=== PATIENT | female | born 1980 | race Caucasian/White ===

== ENCOUNTER 2024-08-13 17:38 | Emergency (ER) | payer OTHER, SELFPAY ==
[2024-08-13] VITALS (19 sets, daily range): BP systolic 130–132; BP diastolic 65–84; PULSE 67–95; TEMP 36.9; O2SAT 92–99; BMI 61.7
--- NOTE | 2024-08-13 17:51 | ECG_ITS ---
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 Measurements Intervals [place] Rate: 77 P: 57 KS: 156 QRS: 17 QRSD: 92 T: 4 QT: 396 QTc: 428 Interpretive Statements 1100 Sinus rhythm 9110 normal ECG No previous ECG available for comparison Electronically Signed On 08-13-2024 17:55:03 EDT by ESTEBAN CONWAY M.D.
--- NOTE | 2024-08-13 17:52 | ED.GENADUL1 ---
HPI HPI - General Adult General Chief complaint: Overdose Stated complaint: Overdose Time Seen by Provider: 08/13/24 17:44 Source: family Mode of arrival: Wheelchair History of Present Illness HPI narrative: 43-year-old female presents for an overdose. She took 0.25 mg Xanax tablets. She reports that she took 2 this morning and then 2 this afternoon and then she took approximately 8 at 1 time at 5 PM, just prior to seeing her counselor. Her counselor told her to come to the emergency department. The patient states she took them because she did not want to hurt anymore. When questioned she reports that this is not physical pain that she is referring to but rather emotional pain. She states she has never done anything like this before. She does not have any physical complaints. Related Data Home Medications ?Medication ?Instructions ?Recorded ?Confirmed atorvastatin 20 mg tablet 20 mg PO DAILY 08/13/24 08/13/24 bisoprolol 10 1 tab PO DAILY 08/13/24 08/13/24 mg-hydrochlorothiazide 6.25 mg tablet fluoxetine 20 mg tablet 20 mg PO DAILY 08/13/24 08/13/24 levothyroxine 100 mcg tablet 100 mcg PO DAILY 08/13/24 08/13/24 (Synthroid) metformin 500 mg tablet,extended 1,000 mg PO DAILY 08/13/24 08/13/24 release 24 hr semaglutide 0.25 mg or 0.5 mg (2 0.5 mg subcut .weekly 08/13/24 08/13/24 mg/3 mL) subcutaneous pen injector (Ozempic) Allergies Allergy/AdvReac Type Severity Reaction Status Date / Time ciprofloxacin (From Cipro) Allergy Severe Rash Verified 08/13/24 17:51 Penicillins Allergy Severe Rash Verified 08/13/24 17:51 Opioid HPI Opioid Management Most Recent Opioid Data: No Data to Display Review of Systems ROS Narrative A ten point review of systems is negative except as noted above. Exam Narrative Exam Narrative: Nurses note and vital signs reviewed and patient is not hypoxic. General: The patient appears in no apparent distress. Patient is resting comfortably on cart. Skin: Warm, dry, no pallor noted. There is no rash noted. Head: Normocephalic, atraumatic Eye: Normal conjunctiva, no drainage, EOMI. PERRL Ears, Nose, Mouth, and Throat: oral mucosa is moist. Nares patent. Cardiovascular: Regular Rate and Rhythm Respiratory: Patient is in no distress, no accessory muscle use, lungs are clear to auscultation, no wheezing, rales or rhonchi Back: non-tender, no CVA tenderness bilaterally to percussion. GI: Obese and nontender Musculoskeletal: The patient has no evidence of calf tenderness, no pitting edema, symmetrical pulses noted bilaterally Neurological: A&O x4, normal speech Psychiatric: Cooperative. She gives short answers to questions. Constitutional Vital Signs, click to edit/add: Last Vital Signs Temp 98.4 F 08/13/24 17:43 Pulse 75 08/13/24 17:43 Resp 16 08/13/24 17:43 BP 130/65 08/13/24 17:43 Pulse Ox 95 08/13/24 17:43 O2 Del Method Room Air 08/13/24 17:43 Course Vital Signs Vital signs: Vital Signs Temperature 98.4 F 08/13/24 17:43 Pulse Rate 75 08/13/24 17:43 Respiratory Rate 16 08/13/24 17:43 Blood Pressure 130/65 08/13/24 17:43 Pulse Oximetry 95 08/13/24 17:43 Oxygen Delivery Method Room Air 08/13/24 17:43 Temperature 98.4 F 08/13/24 17:43 Pulse Rate 75 08/13/24 17:43 Respiratory Rate 16 08/13/24 17:43 Blood Pressure 130/65 08/13/24 17:43 Pulse Oximetry 95 08/13/24 17:43 Oxygen Delivery Method Room Air 08/13/24 17:43 Medical Decision Making [facility] Narrative Medical decision making narrative: Tests are ordered and the patient is signed out to Dr. Candelario at change of shift. Differential Diagnosis Differential Diagnosis: Overdose, suicidal ideation, depression Lab Data Lab results reviewed: Yes I reviewed the patient's lab results Labs: Lab Results 08/13/24 Range/Units 18:01 WBC 11.1 H (4.0-11.0) 10^3/uL RBC 4.49 (4.20-5.40) 10^6/uL Hgb 13.4 (12.0-16.0) g/dL Hct 40.4 (36.0-48.0) % MCV 90.0 (81.0-99.0) fL MCH 29.8 (26.7-34.0) pg MCHC 33.2 (29.9-35.2) g/dL RDW 13.3 (11.0-15.0) % Plt Count 312 (150-450) 10^3/uL MPV 9.6 (9.5-13.5) fL Neut % (Auto) 74.9 (43.0-75.0) % Lymph % (Auto) 19.8 L (20.5-60.0) % [place] % (Auto) 4.1 (1.7-12.0) % Eos % (Auto) 0.5 L (0.9-7.0) % Baso % (Auto) 0.2 (0.2-2.0) % Neut # (Auto) 8.3 H (1.4-6.5) 10^3/uL Lymph # (Auto) 2.2 (1.2-3.8) 10^3/uL [place] # (Auto) 0.5 (0.3-0.8) 10^3/uL Eos # (Auto) 0.1 (0.0-0.7) 10^3/uL Baso # (Auto) 0.0 (0.0-0.1) 10^3/uL Abs Immat Gran (auto) 0.05 H (0.00-0.03) 10^3/uL Imm/Tot Granulo (auto) 0.5 (0.0-0.5) % ECG Data Attestation: I personally reviewed and interpreted this ECG as follows: (EKG on my interpretation shows sinus rhythm with a rate of 77.) Discharge Plan Discharge Patient Disposition: Still a Patient
--- NOTE | 2024-08-13 18:03 | PC.NURSE ---
straight catheter performed for urine spec.
[2024-08-13 18:08] LABS: Basophils Percent Auto 0.2 % (0.2-2.0); Eosinophils Absolute Auto 0.1 10^3/uL (0.0-0.7); Eosinophils Percent Auto 0.5 % (0.9-7.0); Hematocrit 40.4 % (36.0-48.0); Hemoglobin 13.4 g/dL (12.0-16.0); Immature Granulocytes Abs Auto 0.05 10^3/uL (0.00-0.03); Immature Granulocytes Pct Auto 0.5 % (0.0-0.5); Lymphocytes Absolute Auto 2.2 10^3/uL (1.2-3.8); Lymphocytes Percent Auto 19.8 % (20.5-60.0); Mean Corpuscular HGB Conc 33.2 g/dL (29.9-35.2); Mean Corpuscular Hemoglobin 29.8 pg (26.7-34.0); Mean Platelet Volume 9.6 fL (9.5-13.5); Monocytes Absolute Auto 0.5 10^3/uL (0.3-0.8); Monocytes Percent Auto 4.1 % (1.7-12.0); Neutrophils Absolute Auto 8.3 10^3/uL (1.4-6.5); Neutrophils Percent Auto 74.9 % (43.0-75.0); Platelet Count 312 10^3/uL (150-450); Red Blood Count 4.49 10^6/uL (4.20-5.40); Red Cell Distribution Width 13.3 % (11.0-15.0); White Blood Count 11.1 10^3/uL (4.0-11.0)
[2024-08-13 18:19] LABS: Bilirubin Urine NEGATIVE (NEGATIVE); Blood Urine TRACE-I (NEGATIVE); Clarity Urine CLEAR (CLEAR); Color Urine YELLOW (YELLOW); Glucose Urine UA NEGATIVE (NEGATIVE); Ketones Urine NEGATIVE (NEGATIVE); Leukocyte Esterase Urine NEGATIVE (NEGATIVE); Nitrite Urine NEGATIVE (NEGATIVE); Protein Urine 100 mg/dL (NEG/TRACE); Specific Gravity Urine >=1.030 (1.005-1.025); Urobilinogen Urine 0.2 EU/dL (0.2-1.0)
[2024-08-13 18:21] LABS: Anion Gap 10.4; BUN Creatinine Ratio 13.3; Carbon Dioxide 31.4 mmol/L (21.0-32.0); Chloride 102 mmol/L (98-107); Estimated GFR (African America >60 (>=60 mL/min/1.73m^2); Estimated GFR (Non-African Ame >60 (>=60 mL/min/1.73m^2); Glucose 140 mg/dL (74-106); Potassium 3.8 mmol/L (3.5-5.1); Sodium 140 mmol/L (136-145)
[2024-08-13 18:24] LABS: Salicylate <2.8 mg/dL (<=19.9)
[2024-08-13 18:28] LABS: Bacteria Urine TRACE #/HPF (NONE SEEN); Crystals Seen? Seen #/HPF (None Seen); Mucus Urine SMALL (NONE SEEN); RBC Urine 0-2 #/HPF (0-2); Squamous Epithelial Cell Urine FEW #/LPF (NONE/RARE); WBC Urine 0-2 #/HPF (NONE SEEN)
[2024-08-13 18:29] LABS: Amorphous Sediment Urine FEW; Cast Seen? NONE SEEN #/LPF (NONE SEEN); Urine Culture Indicated NO
[2024-08-13 18:31] LABS: Acetaminophen <2.0 ug/mL (10.0-30.0); Ethanol <3 mg/dL
[2024-08-13 18:32] LABS: Amphetamine Screen Urine NEGATIVE (NEGATIVE); Barbiturates Screen Urine NEGATIVE (NEGATIVE); Benzodiazepines Screen Urine POSITIVE (NEGATIVE); Buprenorphine Screen Urine NEGATIVE (NEGATIVE); Cannabinoid Screen Urine NEGATIVE (NEGATIVE); Cocaine Screen Urine NEGATIVE (NEGATIVE); Methadone Screen Urine NEGATIVE (NEGATIVE); Methamphetamines Screen Urine NEGATIVE (NEGATIVE); Opiate Screen Urine NEGATIVE (NEGATIVE); Oxycodone Screen Urine NEGATIVE (NEGATIVE); Phencyclidine Screen Urine NEGATIVE (NEGATIVE); Tricyclic Antidepressant Urine NEGATIVE (NEGATIVE)
--- NOTE | 2024-08-13 20:26 | PC.NURSE ---
Explained to pt that [facility] will be talking to Psychiatry to see about admitting her there. She is agreeable to this and remains A & O x 4 and tearful. Support and reassurance given. Mom at the bedside. VSS.
--- NOTE | 2024-08-13 20:55 | PC.NURSE ---
12--0.25 xanax tabs disposed of into drug waste bottle as witnessed by Екатерина Freitas RN. Pt aware and is agreeable to the destruction of these remaining tabs which in 2021. Mom as witness to this conversation and is at the bedside.
--- NOTE | 2024-08-13 22:19 | PC.NURSE ---
Report to RN at [facility] [place] [facility] [address]
== END 2024-08-13 23:38 ==
PROVIDERS: Emergency Medicine; Emergency Provider Internal Medicine
DX: T42.4X2A Poisoning by benzodiazepines, intentional self-harm, initial encounter (principal); F32.A Depression, unspecified
CPT/HCPCS: 36415; 80048; 80179; 80307; 80320; 80329; 81001; 85025; 93005; 99285